=== PATIENT | male | born 1985 | race Caucasian/White ===

== ENCOUNTER 2016-08-12 12:48 | Emergency (ER) | payer BC ==
[~2016-08-12] VITALS: Ht 182.9 cm; Wt 65.8 kg
[2016-08-12 12:57] VITALS: BP 127/80
[2016-08-12] MEDS ORDERED: NORCO 5-325 TA1 EACH PO (18:58)
== END 2016-08-12 13:42 | disposition home or self-care (01) ==
LOC: ER 12:48
DX: S06.0X9A Concussion with loss of consciousness of unspecified duration, initial encounter (principal); Z88.1 Allergy status to other antibiotic agents; X58.XXXA Exposure to other specified factors, initial encounter; Y93.66 Activity, soccer; Y92.89 Other specified places as the place of occurrence of the external cause; Y99.9 Unspecified external cause status